=== PATIENT | female | born 1955 | race Asian ===

== ENCOUNTER 2021-03-23 11:41 | Outpatient (CLI) | payer OTHER ==
[2021-03-23 13:11] LABS: PLATELET COUNT 212 K/uL (152-353)
[2021-03-23 13:21] LABS: POTASSIUM 3.8 mmol/L (3.6-5.2)
== END 2021-03-23 19:24 | disposition home or self-care (01) ==
LOC: LAB 11:41
PROVIDERS: ATTEND Family Medicine
DX: Z00.00 Encounter for general adult medical examination without abnormal findings (principal); I25.10 Atherosclerotic heart disease of native coronary artery without angina pectoris; I10 Essential (primary) hypertension; E78.2 Mixed hyperlipidemia; E11.9 Type 2 diabetes mellitus without complications; E78.00 Pure hypercholesterolemia, unspecified; I73.9 Peripheral vascular disease, unspecified; E66.9 Obesity, unspecified; R60.0 Localized edema; G57.83 Other specified mononeuropathies of bilateral lower limbs; Z79.899 Other long term (current) drug therapy; R53.83 Other fatigue; R53.81 Other malaise
CPT/HCPCS: 80053; 80061; 82306; 82607; 83036; 84439; 84443; 85027